=== PATIENT | female | born 1940 | race African-American/Black ===

== ENCOUNTER 2022-08-26 19:22 | Inpatient (IN) | payer MEDICARE, OTHER ==
[2022-08-26] MEDS ORDERED: EPINEPHrine 1 MG/10 ML Abboject SYRINGE ONE (19:25)
[2022-08-26 20:25] LABS: Hemoglobin 12.4 g/dL (12.0-16.0); Mean Corpuscular HGB CONC 31.4 g/dL (32.0-36.0); Mean Corpuscular Hemoglobin 32.5 pg (27.0-31.0); Mean Platelet Volume 9.4 fL (7.4-10.4); Platelet Count 152 thou/uL (130-400); RBC Distribution Width 14.3 % (11.5-14.5); Red Blood Cell (RBC) Count 3.82 mill/uL (4.20-5.40); White Blood Cell (WBC) Count 7.9 thou/uL (4.8-10.8)
[2022-08-26 20:27] LABS: INR-International Normal Ratio 1.3; PTT 38.2 sec (22.9-36.1); Prothrombin Time 16.2 sec (12.0-14.7)
[2022-08-26 20:38] LABS: Digoxin Less than 0.15 ng/mL (0.8-2.0)
[2022-08-26 20:39] LABS: Acetaminophen Less than 10.0 mcg/mL (10.0-30.0); Alcohol Less than 10 mg/dL (Less than 10); CK (CPK) 40 U/L (29-168); Salicylate Less than 8.0 mg/dL (15.0-30.0)
[2022-08-26 20:53] LABS: ALT (SGPT) 10 U/L (8-55); AST (SGOT) 19 U/L (5-34); Albumin 2.1 g/dL (3.4-4.8); Alkaline Phosphatase 47 U/L (40-110); Anion Gap 16 mmol/L (10-20); BUN (Urea Nitrogen) 29 mg/dL (9.8-20.1); Bilirubin, Total 0.7 mg/dL (0.2-1.2); Calc. Creatinine Clearance 0 mL/min (70-130); Calcium 8.2 mg/dL (7.8-10.44); Carbon Dioxide 17 mmol/L (23-31); Chloride 131 mmol/L (98-107); Estimated GFR 61; Globulin 2.7 g/dL (2.4-3.5); Glucose 118 mg/dL (83-110); Potassium 2.3 mmol/L (3.5-5.1); Protein, Total 4.8 g/dL (5.8-8.1); Sodium 162 mmol/L (136-145)
[2022-08-26 21:01] LABS: Band 5 % (5-11); Hypochromia SLIGHT = 6-15 cells (100X) (0-5/hpf); Large Platelets SLIGHT; Lymphocytes 45 % (21-51); MDiff Complete? YES; Macrocytosis MODERATE=16-30 cells (100X) (0-5/hpf); Metamyelocyte 2 % (0-0); Monocytes 6 % (0-10); Neutrophil 39 % (42-75); Ovalocytes SLIGHT = 2-5 cells (100X) (0-1/hpf); Platelet Morphology Comment Appears Adequate; Polychromasia SLIGHT = 2-3 cells (100X) (0-2/hpf); Reactive Lymphocytes 2 % (0-10)
[2022-08-26 21:07] LABS: Amphetamine Not Detected (NotDetected); Bacteria/HPF 4+ HPF (None Seen); Barbiturates Screen Not Detected (NotDetected); Benzodiazepine Screen Not Detected (NotDetected); Bilirubin Negative (Negative); Blood, Urine 2+ (Negative); Clarity Turbid (Clear); Cocaine Metabolite Screen Not Detected (NotDetected); Glucose, Urine (Dipstick) Normal (Negative); Ketone, Urine Negative (Negative); Leukocyte 500 Leu/uL (Negative); Methadone Not Detected (NotDetected); Methamphetamine Not Detected (NotDetected); Nitrite 2+ (Negative); Opiate Screen Not Detected (NotDetected); Oxycodone Screen Not Detected (NotDetected); Phencyclidine (PCP) Not Detected (NotDetected); Protein, Urine (Dipstick) 30 mg/dL (Neg-Trace); Specific Gravity, Urine 1.021 (1.002-1.036); Squamous Epithelial 0-3 HPF (0-3); THC/Cannabinoid Screen Not Detected (NotDetected); Tricyclic Screen Not Detected (NotDetected); WBC/HPF Greater than 50 HPF (0-3); pH, Urine 5.5 (5.0-9.0)
[2022-08-26 21:12] LABS: CKMB 1.6 ng/mL (0-6.6)
[2022-08-26] MEDS ORDERED: EPINEPHrine 4 MG in Dextrose 5% in Water 250 ML IV SCH (21:15)
[2022-08-26] MEDS ORDERED: NOREPINEPHRINE 8 MG/250 ML-D5W 250 ML ONE (22:01)
[2022-08-26 22:25] LABS: SARS-CoV-2 NAA Rapid Test Not Detected (NotDetected)
[2022-08-26] MEDS ORDERED: Enoxaparin Sodium 60 MG/0.6 ML SYRINGE ONE (22:37)
[2022-08-26] MEDS ORDERED: cefTRIAXone\\ROCEPHIN 2 GM VIAL ONE (22:37)
[2022-08-26] MEDS ORDERED: Potassium Chloride 20 MEQ TAB ONE ×2 (22:37→23:03)
[2022-08-26] MEDS ORDERED: Potassium Chloride 20 MEQ/100 ML PREMIX BAG ONE (22:38)
[2022-08-26 22:56] LABS: ALT (SGPT) 11 U/L (8-55); AST (SGOT) 22 U/L (5-34); Albumin 2.4 g/dL (3.4-4.8); Alkaline Phosphatase 53 U/L (40-110); Anion Gap 20 mmol/L (10-20); BUN (Urea Nitrogen) 31 mg/dL (9.8-20.1); Bilirubin, Total 0.9 mg/dL (0.2-1.2); Calc. Creatinine Clearance 0 mL/min (70-130); Calcium 8.8 mg/dL (7.8-10.44); Carbon Dioxide 15 mmol/L (23-31); Estimated GFR 49; Globulin 3.1 g/dL (2.4-3.5); Glucose 190 mg/dL (83-110); Protein, Total 5.5 g/dL (5.8-8.1); Sodium 160 mmol/L (136-145)
[2022-08-26 22:58] LABS: Chloride 128 mmol/L (98-107)
[2022-08-26] MEDS ORDERED: Diltiazem 125 MG/25 ML ONE (23:13)
[2022-08-26] MEDS ORDERED: Acetaminophen 650 MG Suppository PR PRN (23:19)
[2022-08-26] MEDS ORDERED: Ondansetron PF 4 MG/2 ML Vial IVP PRN (23:19)
[2022-08-26] MEDS ORDERED: Ondansetron ODT 4 MG TAB PO PRN (23:19)
[2022-08-26] MEDS ORDERED: Acetaminophen 325 MG TAB PO PRN (23:19)
[2022-08-26 23:27] LABS: Lactic Acid 7.5 mmol/L (0.5-2.2)
[2022-08-26] MEDS ORDERED: Sodium Chloride 0.9% 1,000 ML IV SCH (23:30)
[2022-08-26] MEDS ORDERED: VANCOMYCIN 1.25 GM/250 ML BAG IVPB SCH (23:30)
[2022-08-27 00:34] LABS: Troponin I 0.753 ng/mL (< 0.028)
[2022-08-27 00:57] VITALS: BMI 22.4
[2022-08-27 01:14] LABS: Actual Bicarbonate (HCO3a) 12.6 mEq/L (22-28); Base Excess (BEa) -9.3 mEq/L (-2.0 to +3.0); Calcium, Ionized (arterial) 1.21 mmol/L (1.12-1.30); Carboxyhemoglobin (COHb) 0.3 gm% (0.0-3.0); Hemoglobin (Hb) 14.1 g/dL (12.0-16.0); Potassium - ABG Lab 3.62 mmol/L (3.70-5.30); pH, Arterial 7.42 (7.35-7.45)
[2022-08-27 01:16] LABS: ALV-art Gradient 64.875 mmHg (0-20); CO2 Tension 19.7 mmHg (35.0-45.0); O2 Tension (PaO2), arterial 623.5 mmHg (> 60.0); Puncture Site RRA
[2022-08-27 02:22] LABS: Lactic Acid 6.7 mmol/L (0.5-2.2)
[2022-08-27 02:25] LABS: Anion Gap 18 mmol/L (10-20); BUN (Urea Nitrogen) 31 mg/dL (9.8-20.1); Calc. Creatinine Clearance 38 mL/min (70-130); Calcium 8.5 mg/dL (7.8-10.44); Carbon Dioxide 14 mmol/L (23-31); Estimated GFR 56; Glucose 124 mg/dL (83-110); Potassium 3.3 mmol/L (3.5-5.1); Sodium 158 mmol/L (136-145)
[2022-08-27 02:39] LABS: Chloride 129 mmol/L (98-107)
[2022-08-27 02:59] LABS: Troponin I 0.855 ng/mL (< 0.028)
[2022-08-27] MEDS ORDERED: Meropenem 1 GM in Sodium Chloride 0.9% 100 ML IVPB SCH (03:08)
[2022-08-27] MEDS ORDERED: NOREPINEPHRINE 8 MG/250 ML-D5W 250 ML IVPB SCH (03:15)
[2022-08-27] MEDS ORDERED: Vancomycin 1.5 GRAM/300 ML BAG 1.5 GM in Premix Bag 1 BAG IVPB SCH (03:15)
[2022-08-27 03:48] LABS: Hemoglobin 13.3 g/dL (12.0-16.0); Mean Corpuscular HGB CONC 32.3 g/dL (32.0-36.0); Mean Corpuscular Hemoglobin 32.7 pg (27.0-31.0); Mean Platelet Volume 8.8 fL (7.4-10.4); Platelet Count 177 thou/uL (130-400); RBC Distribution Width 14.4 % (11.5-14.5); Red Blood Cell (RBC) Count 4.07 mill/uL (4.20-5.40); White Blood Cell (WBC) Count 10.9 thou/uL (4.8-10.8)
[2022-08-27 03:49] LABS: #Lymphocytes 1.1 thou/uL (1.20-3.40); #Monocytes 0.4 thou/uL (0.11-0.59); #Neutrophils 9.4 thou/uL (1.40-6.50); %Eosinophils 0.3 % (0.0-10.0); %Lymphocytes 9.7 % (21.0-51.0); %Monocytes 3.9 % (0.0-10.0)
[2022-08-27 04:08] LABS: Magnesium 1.7 mg/dL (1.6-2.6)
[2022-08-27 06:01] LABS: Anion Gap 18 mmol/L (10-20); BUN (Urea Nitrogen) 30 mg/dL (9.8-20.1); Calc. Creatinine Clearance 36 mL/min (70-130); Calcium 8.7 mg/dL (7.8-10.44); Carbon Dioxide 15 mmol/L (23-31); Estimated GFR 53; Glucose 110 mg/dL (83-110); Sodium 158 mmol/L (136-145)
[2022-08-27 06:05] LABS: Chloride 128 mmol/L (98-107)
[2022-08-27 06:39] LABS: Lactic Acid 3.8 mmol/L (0.5-2.2)
[2022-08-27 06:46] LABS: Anion Gap 17 mmol/L (10-20); BUN (Urea Nitrogen) 30 mg/dL (9.8-20.1); Calc. Creatinine Clearance 35 mL/min (70-130); Calcium 8.4 mg/dL (7.8-10.44); Carbon Dioxide 15 mmol/L (23-31); Estimated GFR 51; Glucose 101 mg/dL (83-110); Sodium 158 mmol/L (136-145)
[2022-08-27 06:49] LABS: Chloride 129 mmol/L (98-107)
[2022-08-27] MEDS ORDERED: Magnesium 2 GM/50 ML(in water) 2 GM in Premix Bag 1 BAG IVPB SCH (07:00)
[2022-08-27] MEDS ORDERED: 1/2 NS w/KCL 20 mEq 1,000 ML IV SCH ×3 (07:00→08:15)
[2022-08-27] MEDS ORDERED: Electrolyte Replacement Protocol 1 EACH FS PRN (07:07)
[2022-08-27] MEDS ORDERED: Sodium Chloride 0.9% 1,000 ML IV SCH (07:15)
[2022-08-27 07:20] LABS: Bacteria/HPF 4+ HPF (None Seen); Bilirubin Negative (Negative); Blood, Urine 2+ (Negative); Clarity Turbid (Clear); Glucose, Urine (Dipstick) Normal (Negative); Ketone, Urine Negative (Negative); Leukocyte 500 Leu/uL (Negative); Nitrite 2+ (Negative); Protein, Urine (Dipstick) 30 mg/dL (Neg-Trace); Specific Gravity, Urine 1.021 (1.002-1.036); Squamous Epithelial 0-3 HPF (0-3); Urobilinogen Normal mg/dL (Less than 2); WBC/HPF Greater than 50 HPF (0-3); pH, Urine 5.5 (5.0-9.0)
[2022-08-27 07:21] LABS: Urine Culture Reflex Yes Yes
[2022-08-27] MEDS ORDERED: Potassium Bicarbonate/Cit Ac 20 MEQ TAB PER TUBE SCH (07:30)
[2022-08-27 07:40] LABS: Actual Bicarbonate (HCO3a) 15.5 mEq/L (22-28); Base Excess (BEa) -2.3 mEq/L (-2.0 to +3.0); Calcium, Ionized (arterial) 1.17 mmol/L (1.12-1.30); Carboxyhemoglobin (COHb) 0.3 gm% (0.0-3.0); Hemoglobin (Hb) 12.7 g/dL (12.0-16.0); O2 Tension (PaO2), arterial 225.8 mmHg (> 60.0); Potassium - ABG Lab 2.95 mmol/L (3.70-5.30)
[2022-08-27] MEDS ORDERED: Potassium Chloride 40 MEQ in Premix Bag 1 BAG IVPB SCH (08:00)
[2022-08-27 08:02] LABS: ALV-art Gradient 77.175 mmHg (0-20); CO2 Tension 14.3 mmHg (35.0-45.0); Puncture Site LFA; pH, Arterial 7.65 (7.35-7.45)
[2022-08-27] MEDS: Pantoprazole 40 MG VIAL IVP SCH (09:22)
[2022-08-27] MEDS: Albumin 25% 25 GM/100 ML BOT IVPB SCH ×3 (09:53→20:02)
[2022-08-27] MEDS: Polyethylene Glycol 3350 17 GM Packet PO SCH (09:54)
[2022-08-27] MEDS: Enoxaparin Sodium 40 MG/0.4 ML SYRINGE SC SCH (09:54)
[2022-08-27] MEDS: Senokot S 8.6-50 MG TAB PO SCH ×2 (09:54→20:02)
[2022-08-27 10:07] LABS: Phosphorus Less than 1.0 mg/dL (2.3-4.7)
[2022-08-27] MEDS ORDERED: Potassium Phosphate 30 MMOL in Sodium Chloride 0.9% 250 ML 250 ML IVPB SCH (10:30)
[2022-08-27] MEDS: Meropenem 1 GM in Sodium Chloride 0.9% 100 ML IVPB SCH ×2 (11:12→22:59)
[2022-08-27 12:33] LABS: Lactic Acid 1.9 mmol/L (0.5-2.2)
[2022-08-27 12:36] LABS: Anion Gap 14 mmol/L (10-20); BUN (Urea Nitrogen) 29 mg/dL (9.8-20.1); Calc. Creatinine Clearance 34 mL/min (70-130); Calcium 8.9 mg/dL (7.8-10.44); Carbon Dioxide 18 mmol/L (23-31); Estimated GFR 49; Glucose 94 mg/dL (83-110); Potassium 4.3 mmol/L (3.5-5.1); Sodium 157 mmol/L (136-145)
[2022-08-27 12:45] LABS: Chloride 129 mmol/L (98-107)
[2022-08-27] MEDS: Sodium Chloride 0.45% 1,000 ML IV SCH ×2 (13:54→22:00)
[2022-08-27 17:34] LABS: Anion Gap 14 mmol/L (10-20); BUN (Urea Nitrogen) 28 mg/dL (9.8-20.1); Calc. Creatinine Clearance 35 mL/min (70-130); Calcium 8.7 mg/dL (7.8-10.44); Carbon Dioxide 18 mmol/L (23-31); Chloride 129 mmol/L (98-107); Estimated GFR 51; Glucose 85 mg/dL (83-110); Phosphorus 3.5 mg/dL (2.3-4.7); Potassium 4.3 mmol/L (3.5-5.1); Sodium 157 mmol/L (136-145)
[2022-08-27] MEDS: Bisacodyl 10 MG SUPP PR SCH (20:02)
[2022-08-27] MEDS ORDERED: Fentanyl CADD 100 ML ONE (20:23)
[2022-08-27] MEDS: Fentanyl CADD 100 ML IV SCH (20:26)
[2022-08-27] MEDS ORDERED: Dextrose 10% in Water 250 ML IVPB SCH (23:00)
[2022-08-27] MEDS ORDERED: Dextrose 5% in Water 1,000 ML IV PRN (23:00)
[2022-08-27] MEDS ORDERED: Dextrose 50% Abboject 50 ML SYRINGE SLOW IVP SCH (23:00)
[2022-08-27] MEDS ORDERED: Dextrose 50% Abboject 50 ML SYRINGE IVP PRN (23:00)
[2022-08-27] MEDS: Dextrose 5 %-0.45 % NaCl 1,000 ML IV SCH (23:10)
[2022-08-28] MEDS: Albumin 25% 25 GM/100 ML BOT IVPB SCH ×2 (03:22→09:59)
[2022-08-28 04:07] LABS: #Lymphocytes 1.2 thou/uL (1.20-3.40); #Monocytes 0.4 thou/uL (0.11-0.59); #Neutrophils 6.9 thou/uL (1.40-6.50); %Basophils 0.4 % (0.0-1.0); %Eosinophils 0.3 % (0.0-10.0); %Lymphocytes 14.4 % (21.0-51.0); %Monocytes 4.7 % (0.0-10.0); %Neutrophils 80.2 % (42.0-75.0); Mean Corpuscular HGB CONC 31.5 g/dL (32.0-36.0); Mean Corpuscular Hemoglobin 32.3 pg (27.0-31.0); Mean Platelet Volume 9.1 fL (7.4-10.4); Platelet Count 119 thou/uL (130-400); RBC Distribution Width 14.5 % (11.5-14.5); White Blood Cell (WBC) Count 8.7 thou/uL (4.8-10.8)
[2022-08-28 04:15] LABS: Lactic Acid 1.7 mmol/L (0.5-2.2)
[2022-08-28] MEDS: Vancomycin HCl 750 MG in Sodium Chloride 0.9% 250 ML 250 ML IVPB SCH (04:47)
[2022-08-28 04:52] LABS: ALT (SGPT) 8 U/L (8-55); AST (SGOT) 23 U/L (5-34); Albumin 3.3 g/dL (3.4-4.8); Alkaline Phosphatase 42 U/L (40-110); Anion Gap 14 mmol/L (10-20); BUN (Urea Nitrogen) 24 mg/dL (9.8-20.1); Bilirubin, Total 0.7 mg/dL (0.2-1.2); Calc. Creatinine Clearance 42 mL/min (70-130); Calcium 8.6 mg/dL (7.8-10.44); Carbon Dioxide 19 mmol/L (23-31); Chloride 126 mmol/L (98-107); Estimated GFR 63; Globulin 2.2 g/dL (2.4-3.5); Glucose 89 mg/dL (83-110); Phosphorus 2.2 mg/dL (2.3-4.7); Potassium 3.5 mmol/L (3.5-5.1); Protein, Total 5.5 g/dL (5.8-8.1); Sodium 155 mmol/L (136-145)
[2022-08-28] MEDS ORDERED: Potassium Chloride 20 MEQ TAB PO SCH (05:15)
[2022-08-28] MEDS ORDERED: Potassium Bicarbonate/Cit Ac 20 MEQ TAB PER TUBE SCH (05:30)
[2022-08-28 07:32] LABS: Actual Bicarbonate (HCO3a) 17.6 mEq/L (22-28); Base Excess (BEa) -5.4 mEq/L (-2.0 to +3.0); Calcium, Ionized (arterial) 1.19 mmol/L (1.12-1.30); Carboxyhemoglobin (COHb) 0.3 gm% (0.0-3.0); Hemoglobin (Hb) 10.8 g/dL (12.0-16.0); O2 Tension (PaO2), arterial 129.3 mmHg (> 60.0); Potassium - ABG Lab 4.05 mmol/L (3.70-5.30); pH, Arterial 7.43 (7.35-7.45)
[2022-08-28 07:34] LABS: Puncture Site RRA
[2022-08-28] MEDS: Senokot S 8.6-50 MG TAB PO SCH ×2 (09:54→21:20)
[2022-08-28] MEDS: Enoxaparin Sodium 40 MG/0.4 ML SYRINGE SC SCH (09:54)
[2022-08-28] MEDS: Polyethylene Glycol 3350 17 GM Packet PO SCH (09:54)
[2022-08-28] MEDS: Dextrose 5 %-0.45 % NaCl 1,000 ML IV SCH ×3 (09:54→21:21)
[2022-08-28] MEDS: Pantoprazole 40 MG VIAL IVP SCH (09:54)
[2022-08-28] MEDS: Meropenem 1 GM in Sodium Chloride 0.9% 100 ML IVPB SCH ×2 (11:00→22:16)
[2022-08-28] MEDS: Bisacodyl 10 MG SUPP PR SCH (21:19)
[2022-08-28] MEDS ORDERED: Dextrose 10% in Water 250 ML IVPB SCH (22:15)
[2022-08-29] MEDS: Vancomycin HCl 750 MG in Sodium Chloride 0.9% 250 ML 250 ML IVPB SCH (04:28)
[2022-08-29] MEDS: Dextrose 5 %-0.45 % NaCl 1,000 ML IV SCH (04:28)
[2022-08-29 04:39] LABS: #Monocytes 0.5 thou/uL (0.11-0.59); #Neutrophils 8.4 thou/uL (1.40-6.50); %Basophils 0.1 % (0.0-1.0); %Eosinophils 0.4 % (0.0-10.0); %Lymphocytes 9.8 % (21.0-51.0); %Monocytes 4.6 % (0.0-10.0); %Neutrophils 85.2 % (42.0-75.0); Hemoglobin 10.6 g/dL (12.0-16.0); Mean Corpuscular HGB CONC 31.9 g/dL (32.0-36.0); Mean Corpuscular Hemoglobin 32.7 pg (27.0-31.0); Mean Platelet Volume 9.5 fL (7.4-10.4); Platelet Count 121 thou/uL (130-400); RBC Distribution Width 14.9 % (11.5-14.5); Red Blood Cell (RBC) Count 3.24 mill/uL (4.20-5.40); White Blood Cell (WBC) Count 9.9 thou/uL (4.8-10.8)
[2022-08-29 04:58] LABS: Vancomycin, Trough 15.5 ug/mL
[2022-08-29 05:07] LABS: Anion Gap 11 mmol/L (10-20); BUN (Urea Nitrogen) 16 mg/dL (9.8-20.1); Calc. Creatinine Clearance 46 mL/min (70-130); Calcium 8.5 mg/dL (7.8-10.44); Carbon Dioxide 21 mmol/L (23-31); Chloride 122 mmol/L (98-107); Estimated GFR 81; Glucose 111 mg/dL (83-110); Magnesium 1.7 mg/dL (1.6-2.6); Phosphorus 2.9 mg/dL (2.3-4.7); Potassium 3.6 mmol/L (3.5-5.1); Sodium 150 mmol/L (136-145)
[2022-08-29] MEDS ORDERED: Magnesium 2 GM/50 ML(in water) 2 GM in Premix Bag 1 BAG IVPB SCH (05:30)
[2022-08-29 07:07] LABS: Actual Bicarbonate (HCO3a) 19.3 mEq/L (22-28); Base Excess (BEa) -5.8 mEq/L (-2.0 to +3.0); CO2 Tension 36.5 mmHg (35.0-45.0); Calcium, Ionized (arterial) 1.24 mmol/L (1.12-1.30); Carboxyhemoglobin (COHb) 0.3 gm% (0.0-3.0); Hemoglobin (Hb) 11.4 g/dL (12.0-16.0); O2 Tension (PaO2), arterial 105.6 mmHg (> 60.0); Potassium - ABG Lab 3.54 mmol/L (3.70-5.30); pH, Arterial 7.34 (7.35-7.45)
[2022-08-29 07:08] LABS: ALV-art Gradient 62.675 mmHg (0-20); Puncture Site RRA
[2022-08-29] MEDS ORDERED: Dextrose 5 %-0.45 % NaCl 1,000 ML IV SCH (08:31)
[2022-08-29] MEDS: Enoxaparin Sodium 40 MG/0.4 ML SYRINGE SC SCH (09:18)
[2022-08-29] MEDS: Pantoprazole 40 MG VIAL IVP SCH (09:19)
[2022-08-29] MEDS: Polyethylene Glycol 3350 17 GM Packet PO SCH (09:20)
[2022-08-29] MEDS: Senokot S 8.6-50 MG TAB PO SCH ×2 (09:20→21:42)
[2022-08-29] MEDS: Meropenem 1 GM in Sodium Chloride 0.9% 100 ML IVPB SCH ×2 (11:34→23:23)
[2022-08-29] MEDS ORDERED: Fentanyl CADD 100 ML ONE (13:34)
[2022-08-29] MEDS: Fentanyl CADD 100 ML IV SCH (14:06)
[2022-08-29] MEDS: Dextrose 5% in Water 1,000 ML IV SCH (20:33)
[2022-08-29] MEDS: Bisacodyl 10 MG SUPP PR SCH (21:41)
[2022-08-30 03:42] LABS: #Lymphocytes 1.2 thou/uL (1.20-3.40); #Monocytes 0.3 thou/uL (0.11-0.59); #Neutrophils 5.6 thou/uL (1.40-6.50); %Basophils 0.2 % (0.0-1.0); %Eosinophils 0.6 % (0.0-10.0); %Lymphocytes 16.9 % (21.0-51.0); %Monocytes 3.8 % (0.0-10.0); %Neutrophils 78.5 % (42.0-75.0); Hemoglobin 11.1 g/dL (12.0-16.0); Mean Corpuscular HGB CONC 32.2 g/dL (32.0-36.0); Mean Corpuscular Hemoglobin 33.1 pg (27.0-31.0); Platelet Count 118 thou/uL (130-400); RBC Distribution Width 14.7 % (11.5-14.5); Red Blood Cell (RBC) Count 3.35 mill/uL (4.20-5.40); White Blood Cell (WBC) Count 7.1 thou/uL (4.8-10.8)
[2022-08-30 03:59] LABS: Anion Gap 10 mmol/L (10-20); BUN (Urea Nitrogen) 13 mg/dL (9.8-20.1); Calc. Creatinine Clearance 54 mL/min (70-130); Calcium 8.3 mg/dL (7.8-10.44); Carbon Dioxide 19 mmol/L (23-31); Chloride 118 mmol/L (98-107); Estimated GFR 89; Glucose 89 mg/dL (83-110); Magnesium 2.1 mg/dL (1.6-2.6); Phosphorus 2.4 mg/dL (2.3-4.7); Potassium 3.7 mmol/L (3.5-5.1); Sodium 143 mmol/L (136-145)
[2022-08-30] MEDS: Vancomycin HCl 750 MG in Sodium Chloride 0.9% 250 ML 250 ML IVPB SCH (04:30)
[2022-08-30] MEDS: Dextrose 5% in Water 1,000 ML IV SCH ×2 (05:05→17:43)
[2022-08-30 06:53] LABS: Actual Bicarbonate (HCO3a) 21.4 mEq/L (22-28); Base Excess (BEa) -3.3 mEq/L (-2.0 to +3.0); Calcium, Ionized (arterial) 1.24 mmol/L (1.12-1.30); Carboxyhemoglobin (COHb) 0.3 gm% (0.0-3.0); Hemoglobin (Hb) 11.4 g/dL (12.0-16.0); O2 Tension (PaO2), arterial 137.8 mmHg (> 60.0); Potassium - ABG Lab 3.58 mmol/L (3.70-5.30); Puncture Site RRA; pH, Arterial 7.38 (7.35-7.45)
[2022-08-30] MEDS: Meropenem 1 GM in Sodium Chloride 0.9% 100 ML IVPB SCH ×3 (10:46→23:43)
[2022-08-30] MEDS: Enoxaparin Sodium 40 MG/0.4 ML SYRINGE SC SCH (10:47)
[2022-08-30] MEDS: Polyethylene Glycol 3350 17 GM Packet PO SCH (10:47)
[2022-08-30] MEDS: Metoclopramide HCl 10 MG/2 ML VIAL IVP SCH ×3 (10:47→22:11)
[2022-08-30] MEDS: Senokot S 8.6-50 MG TAB PO SCH ×2 (10:47→22:06)
[2022-08-30] MEDS: Pantoprazole 40 MG VIAL IVP SCH (10:48)
[2022-08-30] MEDS ORDERED: Adenosine 6 MG/2 ML VIAL ONE (15:16)
[2022-08-30] MEDS ORDERED: Adenosine 6 MG/2 ML VIAL IVP SCH (16:00)
[2022-08-30] MEDS: Metoprolol Tartrate 25 MG TAB PO SCH (22:06)
[2022-08-30] MEDS ORDERED: Diltiazem 125 MG in Sodium Chloride 0.9% 100 ML IVPB SCH (23:00)
[2022-08-31] MEDS: Metoclopramide HCl 10 MG/2 ML VIAL IVP SCH ×3 (05:11→13:37)
[2022-08-31] MEDS: Fentanyl CADD 100 ML IV SCH (05:11)
[2022-08-31 05:14] LABS: #Lymphocytes 1.3 thou/uL (1.20-3.40); #Monocytes 0.5 thou/uL (0.11-0.59); #Neutrophils 3.7 thou/uL (1.40-6.50); %Basophils 0.3 % (0.0-1.0); %Eosinophils 0.8 % (0.0-10.0); %Lymphocytes 23.1 % (21.0-51.0); %Monocytes 9.4 % (0.0-10.0); %Neutrophils 66.2 % (42.0-75.0); Hemoglobin 11.7 g/dL (12.0-16.0); Mean Corpuscular Hemoglobin 32.3 pg (27.0-31.0); Mean Platelet Volume 9.3 fL (7.4-10.4); Platelet Count 158 thou/uL (130-400); RBC Distribution Width 14.6 % (11.5-14.5); Red Blood Cell (RBC) Count 3.62 mill/uL (4.20-5.40); White Blood Cell (WBC) Count 5.5 thou/uL (4.8-10.8)
[2022-08-31 05:22] LABS: Anion Gap 7 mmol/L (10-20); BUN (Urea Nitrogen) 14 mg/dL (9.8-20.1); Calc. Creatinine Clearance 52 mL/min (70-130); Calcium 8.7 mg/dL (7.8-10.44); Carbon Dioxide 22 mmol/L (23-31); Chloride 113 mmol/L (98-107); Estimated GFR 88; Glucose 97 mg/dL (83-110); Magnesium 2.1 mg/dL (1.6-2.6); Phosphorus 2.6 mg/dL (2.3-4.7); Potassium 4.1 mmol/L (3.5-5.1); Sodium 138 mmol/L (136-145)
[2022-08-31 07:10] LABS: Actual Bicarbonate (HCO3a) 20.2 mEq/L (22-28); Base Excess (BEa) -3.7 mEq/L (-2.0 to +3.0); Calcium, Ionized (arterial) 1.24 mmol/L (1.12-1.30); Carboxyhemoglobin (COHb) 0.2 gm% (0.0-3.0); Hemoglobin (Hb) 11.9 g/dL (12.0-16.0); Potassium - ABG Lab 3.76 mmol/L (3.70-5.30); pH, Arterial 7.41 (7.35-7.45)
[2022-08-31 07:51] LABS: Puncture Site RRA
[2022-08-31] MEDS: Senokot S 8.6-50 MG TAB PO SCH ×2 (09:22→21:06)
[2022-08-31] MEDS: Enoxaparin Sodium 40 MG/0.4 ML SYRINGE SC SCH (09:22)
[2022-08-31] MEDS: Polyethylene Glycol 3350 17 GM Packet PO SCH (09:22)
[2022-08-31] MEDS: Metoprolol Tartrate 25 MG TAB PO SCH ×2 (09:22→21:06)
[2022-08-31] MEDS: Meropenem 1 GM in Sodium Chloride 0.9% 100 ML IVPB SCH ×3 (09:22→23:35)
[2022-08-31] MEDS: Lansoprazole 3 MG/ML ORAL SUSPENSION PER TUBE SCH (09:26)
[2022-08-31] MEDS: Dextrose 5% in Water 1,000 ML IV SCH ×2 (09:28→23:35)
[2022-09-01] MEDS: Metoclopramide HCl 10 MG/2 ML VIAL IVP SCH ×2 (01:00→12:13)
[2022-09-01 04:25] LABS: #Lymphocytes 0.8 thou/uL (1.20-3.40); #Monocytes 0.4 thou/uL (0.11-0.59); #Neutrophils 2.6 thou/uL (1.40-6.50); %Basophils 0.3 % (0.0-1.0); %Eosinophils 1.2 % (0.0-10.0); %Lymphocytes 19.9 % (21.0-51.0); %Monocytes 10.7 % (0.0-10.0); %Neutrophils 67.9 % (42.0-75.0); Mean Corpuscular HGB CONC 32.6 g/dL (32.0-36.0); Mean Corpuscular Hemoglobin 32.6 pg (27.0-31.0); Mean Corpuscular Volume 99.8 fL (78.0-98.0); Mean Platelet Volume 8.9 fL (7.4-10.4); Platelet Count 164 thou/uL (130-400); RBC Distribution Width 14.4 % (11.5-14.5); Red Blood Cell (RBC) Count 3.38 mill/uL (4.20-5.40); White Blood Cell (WBC) Count 3.9 thou/uL (4.8-10.8)
[2022-09-01 04:48] LABS: Anion Gap 7 mmol/L (10-20); BUN (Urea Nitrogen) 16 mg/dL (9.8-20.1); Calc. Creatinine Clearance 68 mL/min (70-130); Calcium 8.6 mg/dL (7.8-10.44); Carbon Dioxide 23 mmol/L (23-31); Chloride 112 mmol/L (98-107); Estimated GFR 91; Glucose 127 mg/dL (83-110); Potassium 3.7 mmol/L (3.5-5.1); Sodium 138 mmol/L (136-145)
[2022-09-01] MEDS: Meropenem 1 GM in Sodium Chloride 0.9% 100 ML IVPB SCH (08:39)
[2022-09-01] MEDS: Senokot S 8.6-50 MG TAB PO SCH ×2 (08:40→21:07)
[2022-09-01] MEDS: Metoprolol Tartrate 25 MG TAB PO SCH ×2 (08:40→21:06)
[2022-09-01] MEDS: Polyethylene Glycol 3350 17 GM Packet PO SCH (08:40)
[2022-09-01] MEDS: Enoxaparin Sodium 40 MG/0.4 ML SYRINGE SC SCH (08:40)
[2022-09-01] MEDS: Lansoprazole 3 MG/ML ORAL SUSPENSION PER TUBE SCH (08:44)
[2022-09-01] MEDS: cefTRIAXone\\ROCEPHIN 1 GM in Sodium Chloride 0.9% 100 ML IVPB SCH (16:23)
[2022-09-01] MEDS: Dextrose 5% in Water 1,000 ML IV SCH (16:24)
[2022-09-02] MEDS: Metoclopramide HCl 10 MG/2 ML VIAL IVP SCH (01:13)
[2022-09-02 04:40] LABS: #Basophils 0.1 thou/uL (0.0-0.2); #Lymphocytes 1.1 thou/uL (1.20-3.40); #Monocytes 0.7 thou/uL (0.11-0.59); #Neutrophils 3.3 thou/uL (1.40-6.50); %Basophils 1.3 % (0.0-1.0); %Eosinophils 0.7 % (0.0-10.0); %Lymphocytes 21.9 % (21.0-51.0); %Monocytes 13.1 % (0.0-10.0); %Neutrophils 63.1 % (42.0-75.0); Hemoglobin 11.2 g/dL (12.0-16.0); Mean Corpuscular HGB CONC 33.8 g/dL (32.0-36.0); Mean Corpuscular Hemoglobin 33.2 pg (27.0-31.0); Mean Corpuscular Volume 98.3 fL (78.0-98.0); Mean Platelet Volume 8.6 fL (7.4-10.4); Platelet Count 194 thou/uL (130-400); RBC Distribution Width 14.1 % (11.5-14.5); Red Blood Cell (RBC) Count 3.36 mill/uL (4.20-5.40); White Blood Cell (WBC) Count 5.2 thou/uL (4.8-10.8)
[2022-09-02 05:10] LABS: Anion Gap 8 mmol/L (10-20); BUN (Urea Nitrogen) 18 mg/dL (9.8-20.1); Calc. Creatinine Clearance 67 mL/min (70-130); Calcium 8.8 mg/dL (7.8-10.44); Carbon Dioxide 24 mmol/L (23-31); Chloride 109 mmol/L (98-107); Estimated GFR 91; Glucose 105 mg/dL (83-110); Potassium 3.6 mmol/L (3.5-5.1); Sodium 137 mmol/L (136-145)
[2022-09-02] MEDS: Dextrose 5% in Water 1,000 ML IV SCH ×3 (06:03→22:30)
[2022-09-02] MEDS: Polyethylene Glycol 3350 17 GM Packet PO SCH (08:42)
[2022-09-02] MEDS: Metoprolol Tartrate 25 MG TAB PO SCH ×2 (08:42→22:16)
[2022-09-02] MEDS: Lansoprazole 3 MG/ML ORAL SUSPENSION PER TUBE SCH (08:42)
[2022-09-02] MEDS: Enoxaparin Sodium 40 MG/0.4 ML SYRINGE SC SCH (08:42)
[2022-09-02] MEDS: Senokot S 8.6-50 MG TAB PO SCH ×2 (08:43→22:12)
[2022-09-02] MEDS: Metoclopramide 10 MG/10 ML UDCUP PER TUBE SCH ×2 (09:53→22:11)
[2022-09-02] MEDS: cefTRIAXone\\ROCEPHIN 1 GM in Sodium Chloride 0.9% 100 ML IVPB SCH (15:58)
[2022-09-03 04:33] LABS: Anion Gap 9 mmol/L (10-20); BUN (Urea Nitrogen) 20 mg/dL (9.8-20.1); Calc. Creatinine Clearance 58 mL/min (70-130); Calcium 8.7 mg/dL (7.8-10.44); Carbon Dioxide 23 mmol/L (23-31); Chloride 108 mmol/L (98-107); Estimated GFR 92; Glucose 91 mg/dL (83-110); Potassium 3.9 mmol/L (3.5-5.1); Sodium 136 mmol/L (136-145)
[2022-09-03 05:08] LABS: Band 2 % (5-11); Eosinophils 2 % (0-10); Hemoglobin 11.2 g/dL (12.0-16.0); Lymphocytes 26 % (21-51); MDiff Complete? YES; Mean Corpuscular HGB CONC 33.6 g/dL (32.0-36.0); Mean Corpuscular Hemoglobin 33.2 pg (27.0-31.0); Mean Corpuscular Volume 98.6 fL (78.0-98.0); Mean Platelet Volume 8.3 fL (7.4-10.4); Monocytes 13 % (0-10); Myelocyte 1 % (0-0); Neutrophil 56 % (42-75); Platelet Count 216 thou/uL (130-400); RBC Distribution Width 14.1 % (11.5-14.5); Red Blood Cell (RBC) Count 3.38 mill/uL (4.20-5.40); White Blood Cell (WBC) Count 4.7 thou/uL (4.8-10.8)
[2022-09-03] MEDS: Enoxaparin Sodium 40 MG/0.4 ML SYRINGE SC SCH (08:07)
[2022-09-03] MEDS: Metoprolol Tartrate 25 MG TAB PO SCH ×2 (08:08→21:14)
[2022-09-03] MEDS: Lansoprazole 3 MG/ML ORAL SUSPENSION PER TUBE SCH (08:08)
[2022-09-03] MEDS: Polyethylene Glycol 3350 17 GM Packet PO SCH (08:08)
[2022-09-03] MEDS: Metoclopramide 10 MG/10 ML UDCUP PER TUBE SCH ×2 (08:08→20:31)
[2022-09-03] MEDS: Senokot S 8.6-50 MG TAB PO SCH ×2 (08:09→21:15)
[2022-09-03] MEDS: Dextrose 10% in Water 250 ML IVPB PRN (21:09)
[2022-09-03] MEDS: Metoclopramide HCl 10 MG TAB PO SCH (21:14)
[2022-09-03] MEDS ORDERED: Dextrose 5% in Water 1,000 ML IV SCH (22:30)
[2022-09-04] MEDS: Dextrose 5% in Water 1,000 ML IV SCH ×2 (05:19→12:28)
[2022-09-04] MEDS: Dextrose 10% in Water 250 ML IVPB PRN ×3 (05:20→20:56)
[2022-09-04] MEDS: Metoclopramide HCl 10 MG TAB PO SCH ×2 (07:55→21:29)
[2022-09-04] MEDS: Metoprolol Tartrate 25 MG TAB PO SCH ×2 (07:55→19:33)
[2022-09-04] MEDS: Enoxaparin Sodium 40 MG/0.4 ML SYRINGE SC SCH (07:56)
[2022-09-04] MEDS: Polyethylene Glycol 3350 17 GM Packet PO SCH (07:56)
[2022-09-04] MEDS: Senokot S 8.6-50 MG TAB PO SCH ×2 (07:57→19:33)
[2022-09-04 10:38] LABS: Anion Gap 10 mmol/L (10-20); BUN (Urea Nitrogen) 15 mg/dL (9.8-20.1); Calc. Creatinine Clearance 83 mL/min (70-130); Calcium 8.8 mg/dL (7.8-10.44); Carbon Dioxide 21 mmol/L (23-31); Chloride 108 mmol/L (98-107); Estimated GFR 92; Glucose 84 mg/dL (83-110); Potassium 3.8 mmol/L (3.5-5.1); Sodium 135 mmol/L (136-145)
[2022-09-04 10:42] LABS: #Basophils 0.1 thou/uL (0.0-0.2); #Lymphocytes 1.2 thou/uL (1.20-3.40); #Monocytes 0.7 thou/uL (0.11-0.59); #Neutrophils 2.4 thou/uL (1.40-6.50); %Basophils 1.8 % (0.0-1.0); %Eosinophils 1.1 % (0.0-10.0); %Lymphocytes 27.1 % (21.0-51.0); %Monocytes 14.9 % (0.0-10.0); %Neutrophils 55.2 % (42.0-75.0); Hemoglobin 11.3 g/dL (12.0-16.0); Mean Corpuscular HGB CONC 33.9 g/dL (32.0-36.0); Mean Corpuscular Hemoglobin 33.7 pg (27.0-31.0); Mean Corpuscular Volume 99.4 fL (78.0-98.0); Mean Platelet Volume 7.8 fL (7.4-10.4); Platelet Count 240 thou/uL (130-400); RBC Distribution Width 14.1 % (11.5-14.5); Red Blood Cell (RBC) Count 3.37 mill/uL (4.20-5.40); White Blood Cell (WBC) Count 4.4 thou/uL (4.8-10.8)
[2022-09-04] MEDS ORDERED: Dextrose 10% in Water 1,000 ML IV SCH (16:45)
[2022-09-04] MEDS: Dextrose 10% in Water 1,000 ML IV SCH (20:30)
[2022-09-05] MEDS: Dextrose 10% in Water 250 ML IVPB PRN (00:10)
[2022-09-05] MEDS: Metoclopramide HCl 10 MG TAB PO SCH ×2 (08:18→20:53)
[2022-09-05] MEDS: Metoprolol Tartrate 25 MG TAB PO SCH ×2 (08:18→20:53)
[2022-09-05] MEDS: Senokot S 8.6-50 MG TAB PO SCH ×2 (08:19→20:54)
[2022-09-05] MEDS: Enoxaparin Sodium 40 MG/0.4 ML SYRINGE SC SCH (08:19)
[2022-09-05] MEDS: Polyethylene Glycol 3350 17 GM Packet PO SCH (08:19)
[2022-09-05] MEDS: Dextrose 10% in Water 1,000 ML IV SCH (10:45)
[2022-09-05 17:29] LABS: Anion Gap 10 mmol/L (10-20); BUN (Urea Nitrogen) 9 mg/dL (9.8-20.1); Calc. Creatinine Clearance 83 mL/min (70-130); Calcium 8.8 mg/dL (7.8-10.44); Carbon Dioxide 20 mmol/L (23-31); Chloride 108 mmol/L (98-107); Estimated GFR 92; Glucose 106 mg/dL (83-110); Potassium 3.5 mmol/L (3.5-5.1); Sodium 134 mmol/L (136-145)
[2022-09-05 17:37] LABS: Band 3 % (5-11); Eosinophils 4 % (0-10); Lymphocytes 28 % (21-51); MDiff Complete? YES; Mean Corpuscular HGB CONC 33.2 g/dL (32.0-36.0); Mean Corpuscular Hemoglobin 32.6 pg (27.0-31.0); Mean Corpuscular Volume 98.1 fL (78.0-98.0); Mean Platelet Volume 7.4 fL (7.4-10.4); Monocytes 11 % (0-10); Myelocyte 1 % (0-0); Neutrophil 48 % (42-75); Platelet Count 240 thou/uL (130-400); Platelet Morphology Comment Appears Adequate; Polychromasia SLIGHT = 2-3 cells (100X) (0-2/hpf); RBC Distribution Width 13.9 % (11.5-14.5); Reactive Lymphocytes 3 % (0-10); Red Blood Cell (RBC) Count 3.38 mill/uL (4.20-5.40); White Blood Cell (WBC) Count 3.9 thou/uL (4.8-10.8)
[2022-09-05] MEDS ORDERED: Potassium Chloride 20 MEQ TAB PO SCH (20:15)
[2022-09-06] MEDS: Dextrose 10% in Water 1,000 ML IV SCH ×2 (05:01→11:52)
[2022-09-06 05:04] LABS: #Eosinphils 0.1 thou/uL (0.0-0.7); #Lymphocytes 1.3 thou/uL (1.20-3.40); #Monocytes 0.7 thou/uL (0.11-0.59); #Neutrophils 3.6 thou/uL (1.40-6.50); %Basophils 0.3 % (0.0-1.0); %Lymphocytes 22.7 % (21.0-51.0); %Monocytes 11.7 % (0.0-10.0); %Neutrophils 64.3 % (42.0-75.0); Hemoglobin 10.4 g/dL (12.0-16.0); Mean Corpuscular HGB CONC 32.5 g/dL (32.0-36.0); Mean Corpuscular Hemoglobin 32.3 pg (27.0-31.0); Mean Corpuscular Volume 99.5 fL (78.0-98.0); Mean Platelet Volume 7.4 fL (7.4-10.4); Platelet Count 276 thou/uL (130-400); Red Blood Cell (RBC) Count 3.23 mill/uL (4.20-5.40); White Blood Cell (WBC) Count 5.7 thou/uL (4.8-10.8)
[2022-09-06 05:20] LABS: Anion Gap 11 mmol/L (10-20); BUN (Urea Nitrogen) 12 mg/dL (9.8-20.1); Calc. Creatinine Clearance 78 mL/min (70-130); Calcium 8.9 mg/dL (7.8-10.44); Carbon Dioxide 19 mmol/L (23-31); Chloride 108 mmol/L (98-107); Estimated GFR 90; Glucose 108 mg/dL (83-110); Potassium 4.1 mmol/L (3.5-5.1); Sodium 134 mmol/L (136-145)
[2022-09-06] MEDS ORDERED: Dextrose 10% in Water 1,000 ML IV SCH (07:24)
[2022-09-06] MEDS: Metoprolol Tartrate 25 MG TAB PO SCH (09:58)
[2022-09-06] MEDS: Polyethylene Glycol 3350 17 GM Packet PO SCH (09:59)
[2022-09-06] MEDS: Enoxaparin Sodium 40 MG/0.4 ML SYRINGE SC SCH (09:59)
[2022-09-06] MEDS: Senokot S 8.6-50 MG TAB PO SCH ×2 (09:59→21:50)
[2022-09-06] MEDS: Metoclopramide HCl 10 MG TAB PO SCH ×2 (10:02→21:50)
[2022-09-06] MEDS ORDERED: Sodium Chloride 0.9% 250 ML 250 ML IVPB SCH (18:15)
[2022-09-06] MEDS ORDERED: Sodium Chloride 0.9% 250 ML IV SCH (18:30)
[2022-09-07] MEDS: Senokot S 8.6-50 MG TAB PO SCH ×2 (09:19→22:02)
[2022-09-07] MEDS: Dextrose 10% in Water 1,000 ML IV SCH (09:19)
[2022-09-07] MEDS: Enoxaparin Sodium 40 MG/0.4 ML SYRINGE SC SCH (09:19)
[2022-09-07] MEDS: Polyethylene Glycol 3350 17 GM Packet PO SCH (09:20)
[2022-09-07] MEDS: Metoclopramide HCl 10 MG TAB PO SCH ×2 (09:20→22:02)
[2022-09-07 09:35] LABS: Anion Gap 12 mmol/L (10-20); BUN (Urea Nitrogen) 11 mg/dL (9.8-20.1); Calc. Creatinine Clearance 83 mL/min (70-130); Calcium 7.7 mg/dL (7.8-10.44); Carbon Dioxide 19 mmol/L (23-31); Chloride 110 mmol/L (98-107); Estimated GFR 92; Glucose 114 mg/dL (83-110); Potassium 4.9 mmol/L (3.5-5.1); Sodium 136 mmol/L (136-145)
[2022-09-07 15:24] LABS: #Lymphocytes 0.9 thou/uL (1.20-3.40); #Monocytes 0.5 thou/uL (0.11-0.59); %Basophils 0.6 % (0.0-1.0); %Eosinophils 0.7 % (0.0-10.0); %Lymphocytes 16.1 % (21.0-51.0); %Monocytes 8.4 % (0.0-10.0); %Neutrophils 74.2 % (42.0-75.0); Hemoglobin 9.1 g/dL (12.0-16.0); Mean Corpuscular HGB CONC 32.3 g/dL (32.0-36.0); Mean Corpuscular Hemoglobin 32.6 pg (27.0-31.0); Mean Platelet Volume 6.9 fL (7.4-10.4); Platelet Count 259 thou/uL (130-400); RBC Distribution Width 13.7 % (11.5-14.5); White Blood Cell (WBC) Count 5.4 thou/uL (4.8-10.8)
[2022-09-08 05:12] LABS: Anion Gap 11 mmol/L (10-20); BUN (Urea Nitrogen) 10 mg/dL (9.8-20.1); Calc. Creatinine Clearance 80 mL/min (70-130); Calcium 8.6 mg/dL (7.8-10.44); Carbon Dioxide 22 mmol/L (23-31); Chloride 107 mmol/L (98-107); Estimated GFR 91; Glucose 91 mg/dL (83-110); Potassium 4.5 mmol/L (3.5-5.1); Sodium 135 mmol/L (136-145)
[2022-09-08 05:24] LABS: #Eosinphils 0.1 thou/uL (0.0-0.7); #Monocytes 0.5 thou/uL (0.11-0.59); #Neutrophils 3.2 thou/uL (1.40-6.50); %Basophils 0.9 % (0.0-1.0); %Eosinophils 1.5 % (0.0-10.0); %Lymphocytes 20.9 % (21.0-51.0); %Neutrophils 66.7 % (42.0-75.0); Hemoglobin 8.8 g/dL (12.0-16.0); Mean Corpuscular HGB CONC 33.6 g/dL (32.0-36.0); Mean Corpuscular Hemoglobin 34.1 pg (27.0-31.0); Mean Platelet Volume 7.2 fL (7.4-10.4); Platelet Count 242 thou/uL (130-400); RBC Distribution Width 13.8 % (11.5-14.5); Red Blood Cell (RBC) Count 2.57 mill/uL (4.20-5.40); White Blood Cell (WBC) Count 4.9 thou/uL (4.8-10.8)
[2022-09-08] MEDS ORDERED: cefTRIAXone\\ROCEPHIN 1 GM VIAL ONE (10:06)
[2022-09-08] MEDS ORDERED: Ketamine 50 MG/ML (10ML VIAL) ONE (10:06)
[2022-09-08] MEDS ORDERED: Sodium Chloride 0.9% 100 ML ONE (10:06)
[2022-09-08] MEDS ORDERED: PROPOFOL 200 MG/20 ML VIAL ONE (10:17)
[2022-09-08] MEDS: Polyethylene Glycol 3350 17 GM Packet PO SCH (12:33)
[2022-09-08] MEDS: Metoclopramide HCl 10 MG TAB PO SCH ×2 (12:33→20:55)
[2022-09-08] MEDS: Senokot S 8.6-50 MG TAB PO SCH ×2 (12:33→20:54)
[2022-09-08] MEDS: Dextrose 10% in Water 1,000 ML IV SCH (13:12)
[2022-09-09 05:01] LABS: ALT (SGPT) 10 U/L (8-55); AST (SGOT) 28 U/L (5-34); Albumin 2.1 g/dL (3.4-4.8); Alkaline Phosphatase 109 U/L (40-110); Anion Gap 12 mmol/L (10-20); BUN (Urea Nitrogen) 8 mg/dL (9.8-20.1); Bilirubin, Total 0.3 mg/dL (0.2-1.2); Calc. Creatinine Clearance 84 mL/min (70-130); Calcium 8.4 mg/dL (7.8-10.44); Carbon Dioxide 22 mmol/L (23-31); Chloride 107 mmol/L (98-107); Estimated GFR 92; Globulin 2.9 g/dL (2.4-3.5); Glucose 102 mg/dL (83-110); Magnesium 1.7 mg/dL (1.6-2.6); Potassium 4.5 mmol/L (3.5-5.1); Sodium 136 mmol/L (136-145)
[2022-09-09 07:12] LABS: #Eosinphils 0.1 thou/uL (0.0-0.7); #Monocytes 0.5 thou/uL (0.11-0.59); #Neutrophils 2.9 thou/uL (1.40-6.50); %Basophils 0.3 % (0.0-1.0); %Eosinophils 2.3 % (0.0-10.0); %Lymphocytes 21.6 % (21.0-51.0); %Monocytes 10.3 % (0.0-10.0); %Neutrophils 65.6 % (42.0-75.0); Hemoglobin 9.2 g/dL (12.0-16.0); Mean Corpuscular HGB CONC 32.3 g/dL (32.0-36.0); Mean Corpuscular Hemoglobin 32.4 pg (27.0-31.0); Mean Platelet Volume 6.8 fL (7.4-10.4); Platelet Count 249 thou/uL (130-400); RBC Distribution Width 13.6 % (11.5-14.5); Red Blood Cell (RBC) Count 2.84 mill/uL (4.20-5.40); White Blood Cell (WBC) Count 4.4 thou/uL (4.8-10.8)
[2022-09-09 07:49] LABS: Phosphorus 3.2 mg/dL (2.3-4.7)
[2022-09-09] MEDS ORDERED: Magnesium 2 GM/50 ML(in water) 2 GM in Premix Bag 1 BAG IVPB SCH (08:00)
[2022-09-09] MEDS: Polyethylene Glycol 3350 17 GM Packet PO SCH (09:38)
[2022-09-09] MEDS: Senokot S 8.6-50 MG TAB PO SCH ×2 (09:38→22:40)
[2022-09-09] MEDS: Enoxaparin Sodium 40 MG/0.4 ML SYRINGE SC SCH (09:39)
[2022-09-09] MEDS: Dextrose 10% in Water 1,000 ML IV SCH (09:40)
[2022-09-09] MEDS: Metoclopramide HCl 10 MG TAB PO SCH ×2 (09:46→22:40)
[2022-09-10 05:06] LABS: #Eosinphils 0.1 thou/uL (0.0-0.7); #Lymphocytes 1.1 thou/uL (1.20-3.40); #Monocytes 0.4 thou/uL (0.11-0.59); #Neutrophils 2.9 thou/uL (1.40-6.50); %Basophils 0.2 % (0.0-1.0); %Eosinophils 2.6 % (0.0-10.0); %Monocytes 9.6 % (0.0-10.0); %Neutrophils 63.5 % (42.0-75.0); Hemoglobin 9.2 g/dL (12.0-16.0); Mean Corpuscular HGB CONC 32.9 g/dL (32.0-36.0); Mean Corpuscular Hemoglobin 33.1 pg (27.0-31.0); Mean Platelet Volume 7.1 fL (7.4-10.4); Platelet Count 256 thou/uL (130-400); RBC Distribution Width 13.6 % (11.5-14.5); Red Blood Cell (RBC) Count 2.78 mill/uL (4.20-5.40); White Blood Cell (WBC) Count 4.5 thou/uL (4.8-10.8)
[2022-09-10 05:11] LABS: ALT (SGPT) 10 U/L (8-55); AST (SGOT) 26 U/L (5-34); Albumin 2.2 g/dL (3.4-4.8); Alkaline Phosphatase 122 U/L (40-110); Anion Gap 11 mmol/L (10-20); BUN (Urea Nitrogen) 10 mg/dL (9.8-20.1); Bilirubin, Total 0.3 mg/dL (0.2-1.2); Calc. Creatinine Clearance 77 mL/min (70-130); Calcium 8.9 mg/dL (7.8-10.44); Carbon Dioxide 25 mmol/L (23-31); Chloride 106 mmol/L (98-107); Estimated GFR 90; Globulin 3.4 g/dL (2.4-3.5); Glucose 114 mg/dL (83-110); Magnesium 1.8 mg/dL (1.6-2.6); Phosphorus 3.2 mg/dL (2.3-4.7); Potassium 4.5 mmol/L (3.5-5.1); Protein, Total 5.6 g/dL (5.8-8.1); Sodium 137 mmol/L (136-145)
[2022-09-10] MEDS ORDERED: Magnesium 2 GM/50 ML(in water) 2 GM in Premix Bag 1 BAG IVPB SCH (08:00)
[2022-09-10] MEDS: Dextrose 10% in Water 1,000 ML IV SCH (10:39)
[2022-09-10] MEDS: Enoxaparin Sodium 40 MG/0.4 ML SYRINGE SC SCH (10:45)
[2022-09-10] MEDS: Metoclopramide HCl 10 MG TAB PO SCH ×2 (10:46→21:59)
[2022-09-10] MEDS: Polyethylene Glycol 3350 17 GM Packet PO SCH (10:46)
[2022-09-10] MEDS: Senokot S 8.6-50 MG TAB PO SCH ×2 (10:47→21:59)
[2022-09-11 04:29] LABS: #Eosinphils 0.1 thou/uL (0.0-0.7); #Lymphocytes 1.5 thou/uL (1.20-3.40); #Monocytes 0.7 thou/uL (0.11-0.59); #Neutrophils 3.5 thou/uL (1.40-6.50); %Basophils 0.2 % (0.0-1.0); %Eosinophils 1.7 % (0.0-10.0); %Lymphocytes 26.2 % (21.0-51.0); %Monocytes 11.7 % (0.0-10.0); %Neutrophils 60.2 % (42.0-75.0); Hemoglobin 8.5 g/dL (12.0-16.0); Mean Corpuscular HGB CONC 31.8 g/dL (32.0-36.0); Mean Corpuscular Hemoglobin 32.6 pg (27.0-31.0); Mean Platelet Volume 6.6 fL (7.4-10.4); Platelet Count 217 thou/uL (130-400); Red Blood Cell (RBC) Count 2.61 mill/uL (4.20-5.40); White Blood Cell (WBC) Count 5.7 thou/uL (4.8-10.8)
[2022-09-11 04:44] LABS: Anion Gap 8 mmol/L (10-20); BUN (Urea Nitrogen) 12 mg/dL (9.8-20.1); Bilirubin, Total 0.3 mg/dL (0.2-1.2); Calc. Creatinine Clearance 75 mL/min (70-130); Calcium 8.8 mg/dL (7.8-10.44); Carbon Dioxide 27 mmol/L (23-31); Chloride 105 mmol/L (98-107); Estimated GFR 90; Glucose 109 mg/dL (83-110); Potassium 4.4 mmol/L (3.5-5.1); Protein, Total 5.2 g/dL (5.8-8.1); Sodium 136 mmol/L (136-145)
[2022-09-11 04:45] LABS: ALT (SGPT) 7 U/L (8-55); AST (SGOT) 24 U/L (5-34); Albumin 2.1 g/dL (3.4-4.8); Alkaline Phosphatase 105 U/L (40-110); Globulin 3.1 g/dL (2.4-3.5)
[2022-09-11] MEDS: Polyethylene Glycol 3350 17 GM Packet PO SCH (09:26)
[2022-09-11] MEDS: Enoxaparin Sodium 40 MG/0.4 ML SYRINGE SC SCH (09:26)
[2022-09-11] MEDS: Metoclopramide HCl 10 MG TAB PO SCH ×2 (09:26→21:03)
[2022-09-11] MEDS: Senokot S 8.6-50 MG TAB PO SCH ×2 (09:26→21:03)
[2022-09-11] MEDS: Dextrose 10% in Water 1,000 ML IV SCH (21:02)
[2022-09-12] MEDS: Metoclopramide HCl 10 MG TAB PO SCH ×2 (09:26→21:25)
[2022-09-12] MEDS: Enoxaparin Sodium 40 MG/0.4 ML SYRINGE SC SCH (09:26)
[2022-09-12] MEDS: Senokot S 8.6-50 MG TAB PO SCH ×2 (09:26→21:24)
[2022-09-12] MEDS: Polyethylene Glycol 3350 17 GM Packet PO SCH (09:26)
[2022-09-12] MEDS: Dextrose 10% in Water 1,000 ML IV SCH (19:53)
[2022-09-13] MEDS: Senokot S 8.6-50 MG TAB PO SCH (09:27)
[2022-09-13] MEDS: Metoclopramide HCl 10 MG TAB PO SCH (09:27)
[2022-09-13] MEDS: Polyethylene Glycol 3350 17 GM Packet PO SCH (09:27)
[2022-09-13] MEDS: Enoxaparin Sodium 40 MG/0.4 ML SYRINGE SC SCH (09:27)
[2022-09-13 13:03] VITALS: BP 163/104; TEMP 97.4
== END 2022-09-13 15:15 | disposition hospice, home (50) | DRG 870 ==
LOC: ERS 19:22 → EDBD 19:22 → CCU 23:01 → 2NO 09-03 18:23
PROVIDERS: ADMIT Student in an Organized Health Care Education/Training Program; ATTEND Internal Medicine
PROC: 5A1955Z Respiratory Ventilation, Greater than 96 Consecutive Hours (ICD-10-PCS; principal; 2022-08-26)
PROC: 3E043XZ Introduction of Vasopressor into Central Vein, Percutaneous Approach (ICD-10-PCS; 2022-08-26)
PROC: 3E04329 Introduction of Other Anti-infective into Central Vein, Percutaneous Approach (ICD-10-PCS; 2022-08-26)
PROC: 0DH67UZ Insertion of Feeding Device into Stomach, Via Natural or Artificial Opening (ICD-10-PCS; 2022-08-26)
PROC: 3E0G76Z Introduction of Nutritional Substance into Upper GI, Via Natural or Artificial Opening (ICD-10-PCS; 2022-08-26)
PROC: 02HV33Z Insertion of Infusion Device into Superior Vena Cava, Percutaneous Approach (ICD-10-PCS; 2022-08-26)
PROC: 02HV33Z Insertion of Infusion Device into Superior Vena Cava, Percutaneous Approach (ICD-10-PCS; 2022-09-07)
PROC: B5181ZA Fluoroscopy of Superior Vena Cava using Low Osmolar Contrast, Guidance (ICD-10-PCS; 2022-09-07)
PROC: B548ZZA Ultrasonography of Superior Vena Cava, Guidance (ICD-10-PCS; 2022-09-07)
PROC: 0DH63UZ Insertion of Feeding Device into Stomach, Percutaneous Approach (ICD-10-PCS; 2022-09-08)
PROC: 3E0G76Z Introduction of Nutritional Substance into Upper GI, Via Natural or Artificial Opening (ICD-10-PCS; 2022-09-08)
DX: A41.9 Sepsis, unspecified organism (principal); I21.A1 Myocardial infarction type 2; I46.2 Cardiac arrest due to underlying cardiac condition; R65.21 Severe sepsis with septic shock; R57.1 Hypovolemic shock; G92.8 Other toxic encephalopathy; J96.01 Acute respiratory failure with hypoxia; J69.0 Pneumonitis due to inhalation of food and vomit; N39.0 Urinary tract infection, site not specified; E87.0 Hyperosmolality and hypernatremia; I47.1 Supraventricular tachycardia; R64 Cachexia; G93.1 Anoxic brain damage, not elsewhere classified; Z20.822 Contact with and (suspected) exposure to COVID-19; G30.9 Alzheimer's disease, unspecified; F02.80 Dementia in other diseases classified elsewhere, unspecified severity, without behavioral disturbance, psychotic disturbance, mood disturbance, and anxiety; E86.0 Dehydration; Z51.5 Encounter for palliative care; E83.42 Hypomagnesemia; K59.00 Constipation, unspecified; I49.5 Sick sinus syndrome; E87.70 Fluid overload, unspecified; N18.2 Chronic kidney disease, stage 2 (mild); E16.2 Hypoglycemia, unspecified; D63.1 Anemia in chronic kidney disease; R13.10 Dysphagia, unspecified; E83.39 Other disorders of phosphorus metabolism; E87.6 Hypokalemia; D75.89 Other specified diseases of blood and blood-forming organs; Z88.6 Allergy status to analgesic agent; Z95.0 Presence of cardiac pacemaker; Z88.8 Allergy status to other drugs, medicaments and biological substances; Z88.0 Allergy status to penicillin; Z79.82 Long term (current) use of aspirin; Z79.899 Other long term (current) drug therapy; Z78.1 Physical restraint status; Z90.710 Acquired absence of both cervix and uterus; Z98.49 Cataract extraction status, unspecified eye; Z68.26 Body mass index [BMI] 26.0-26.9, adult
CPT/HCPCS: 36415; 36416; 36569; 36600; 70450; 71045; 74018; 74176; 80048; 80053; 80162; 80202; 80306; 80307; 81001; 81003; 81015; 82533; 82550; 82553; 82607; 82805; 83605; 83735; 83880; 84100; 84145; 84443; 84484; 85025; 85610; 85730; 86850; 86900; 86901; 87040; 87077; 87086; 87149; 87186; 87811; 92950; 93005; 93010; 93306; 94002; 94003; 94760; 96365; 96366; 96368; 96372; C1751; C9113; J0153; J0171; J0696; J1610; J1650; J2185; J2704; J2765; J3010; J3370; J3475; J3480; J3490; J7030; J7042; J7050; J7070; P9047

== ENCOUNTER 2022-09-13 22:44 | Inpatient (IN) | payer OTHER ==
[2022-09-14] MEDS ORDERED: Sodium Chloride 0.9% 1,000 ML IV SCH (00:15)
[2022-09-14] MEDS ORDERED: Dextrose 5% in Water 1,000 ML IV PRN (00:55)
[2022-09-14] MEDS ORDERED: Insulin Regular 300 UNITS/3 ML VIAL SC PRN (00:55)
[2022-09-14] MEDS ORDERED: Dextrose 50% Abboject 50 ML SYRINGE SLOW IVP PRN (00:55)
[2022-09-14] MEDS ORDERED: Acetaminophen 650 MG Suppository PR PRN (01:47)
[2022-09-14 02:26] LABS: Anion Gap 14 mmol/L (10-20); BUN (Urea Nitrogen) 11 mg/dL (9.8-20.1); Calc. Creatinine Clearance 0 mL/min (70-130); Calcium 8.9 mg/dL (7.8-10.44); Carbon Dioxide 19 mmol/L (23-31); Chloride 106 mmol/L (98-107); Estimated GFR 89; Glucose 109 mg/dL (83-110); Potassium 3.7 mmol/L (3.5-5.1); Sodium 135 mmol/L (136-145)
[2022-09-14] MEDS ORDERED: Dextrose 10% in Water 1,000 ML IV SCH (03:00)
[2022-09-14] MEDS ORDERED: Dextrose 5% in Water 1,000 ML IV SCH (04:15)
[2022-09-14 04:29] LABS: #Basophils 0.1 thou/uL (0.0-0.2); #Eosinphils 0.3 thou/uL (0.0-0.7); #Lymphocytes 1.7 thou/uL (1.20-3.40); #Monocytes 1.1 thou/uL (0.11-0.59); #Neutrophils 4.5 thou/uL (1.40-6.50); %Basophils 0.8 % (0.0-1.0); %Eosinophils 3.4 % (0.0-10.0); %Lymphocytes 21.8 % (21.0-51.0); %Monocytes 14.1 % (0.0-10.0); %Neutrophils 59.9 % (42.0-75.0); Hemoglobin 9.5 g/dL (12.0-16.0); Mean Corpuscular HGB CONC 32.4 g/dL (32.0-36.0); Mean Corpuscular Hemoglobin 33.7 pg (27.0-31.0); Mean Platelet Volume 7.2 fL (7.4-10.4); Platelet Count 241 thou/uL (130-400); RBC Distribution Width 14.1 % (11.5-14.5); Red Blood Cell (RBC) Count 2.81 mill/uL (4.20-5.40); White Blood Cell (WBC) Count 7.6 thou/uL (4.8-10.8)
[2022-09-14 04:54] LABS: Anion Gap 11 mmol/L (10-20); BUN (Urea Nitrogen) 13 mg/dL (9.8-20.1); Calc. Creatinine Clearance 0 mL/min (70-130); Calcium 8.7 mg/dL (7.8-10.44); Carbon Dioxide 19 mmol/L (23-31); Chloride 106 mmol/L (98-107); Estimated GFR 91; Magnesium 1.7 mg/dL (1.6-2.6); Sodium 132 mmol/L (136-145)
[2022-09-14 05:11] LABS: Glucose 52 mg/dL (83-110)
[2022-09-14] MEDS: Dextrose 10% in Water 1,000 ML IV SCH ×3 (05:18→14:53)
[2022-09-14 06:46] LABS: Glucose 135 mg/dL (83-110)
[2022-09-14 08:31] LABS: Glucose 87 mg/dL (83-110)
[2022-09-14] MEDS ORDERED: Enoxaparin Sodium 40 MG/0.4 ML SYRINGE SC SCH (09:00)
[2022-09-14 10:30] LABS: Glucose 86 mg/dL (83-110)
[2022-09-14 10:34] VITALS: BMI 23.2
[2022-09-14] MEDS: Floranex 1 GM Packet PO SCH (10:41)
[2022-09-14] MEDS: Enoxaparin Sodium 40 MG/0.4 ML SYRINGE SC SCH (10:41)
[2022-09-14] MEDS: Senokot S 8.6-50 MG TAB PO SCH ×2 (10:41→22:38)
[2022-09-14] MEDS: Folic Acid 1 MG TAB PO SCH (10:41)
[2022-09-14] MEDS: Atorvastatin Calcium 40 MG TAB PO SCH (10:41)
[2022-09-14] MEDS: Aspirin 325 MG TAB PO SCH (10:41)
[2022-09-14] MEDS: Cyanocobalamin (Vitamin B-12) 1,000 MCG TAB PO SCH (10:41)
[2022-09-14 12:44] LABS: Glucose 78 mg/dL (83-110)
[2022-09-14 14:25] LABS: Glucose 71 mg/dL (83-110)
[2022-09-14] MEDS: DEXTROSE IV SCH ×2 (14:30→22:38)
[2022-09-14] MEDS: WATER IV SCH ×2 (14:30→22:38)
[2022-09-14 18:04] LABS: Glucose 89 mg/dL (83-110)
[2022-09-14 19:03] LABS: Glucose 118 mg/dL (83-110)
[2022-09-14] MEDS ORDERED: Melatonin 3 MG TAB PO SCH (21:00)
[2022-09-14 21:10] LABS: Glucose 121 mg/dL (83-110)
[2022-09-14] MEDS ORDERED: Morphine 2 MG/ML VIAL SLOW IVP PRN (22:10)
[2022-09-14] MEDS: Morphine 4 MG/ML VIAL SLOW IVP PRN (22:24)
[2022-09-14 22:53] LABS: Glucose 156 mg/dL (83-110)
[2022-09-15 00:40] LABS: Glucose 169 mg/dL (83-110)
[2022-09-15] MEDS: Morphine 4 MG/ML VIAL SLOW IVP PRN ×2 (02:34→06:19)
[2022-09-15] MEDS: WATER IV SCH ×2 (02:36→06:20)
[2022-09-15] MEDS: DEXTROSE IV SCH ×2 (02:36→06:20)
[2022-09-15 04:53] LABS: #Eosinphils 0.1 thou/uL (0.0-0.7); #Lymphocytes 1.4 thou/uL (1.20-3.40); #Monocytes 1.3 thou/uL (0.11-0.59); #Neutrophils 7.1 thou/uL (1.40-6.50); %Basophils 0.3 % (0.0-1.0); %Eosinophils 1.1 % (0.0-10.0); %Lymphocytes 14.1 % (21.0-51.0); %Monocytes 12.9 % (0.0-10.0); %Neutrophils 71.7 % (42.0-75.0); Mean Corpuscular HGB CONC 32.8 g/dL (32.0-36.0); Mean Corpuscular Hemoglobin 33.4 pg (27.0-31.0); Mean Platelet Volume 6.6 fL (7.4-10.4); Platelet Count 241 thou/uL (130-400); RBC Distribution Width 13.4 % (11.5-14.5); Red Blood Cell (RBC) Count 2.39 mill/uL (4.20-5.40); White Blood Cell (WBC) Count 9.8 thou/uL (4.8-10.8)
[2022-09-15 06:10] LABS: ALT (SGPT) 10 U/L (8-55); AST (SGOT) 30 U/L (5-34); Albumin 2.2 g/dL (3.4-4.8); Alkaline Phosphatase 91 U/L (40-110); Anion Gap 10 mmol/L (10-20); BUN (Urea Nitrogen) 14 mg/dL (9.8-20.1); Bilirubin, Total 0.3 mg/dL (0.2-1.2); Calc. Creatinine Clearance 68 mL/min (70-130); Calcium 8.5 mg/dL (7.8-10.44); Carbon Dioxide 22 mmol/L (23-31); Chloride 97 mmol/L (98-107); Estimated GFR 85; Globulin 3.3 g/dL (2.4-3.5); Glucose 202 mg/dL (83-110); Potassium 3.6 mmol/L (3.5-5.1); Protein, Total 5.5 g/dL (5.8-8.1); Sodium 125 mmol/L (136-145)
[2022-09-15] MEDS: Enoxaparin Sodium 40 MG/0.4 ML SYRINGE SC SCH (10:55)
[2022-09-15] MEDS: Floranex 1 GM Packet PO SCH ×2 (10:55→17:44)
[2022-09-15] MEDS: Atorvastatin Calcium 40 MG TAB PO SCH ×2 (10:55→17:44)
[2022-09-15] MEDS: Senokot S 8.6-50 MG TAB PO SCH (10:55)
[2022-09-15] MEDS: Folic Acid 1 MG TAB PO SCH ×2 (10:55→17:44)
[2022-09-15] MEDS: Cyanocobalamin (Vitamin B-12) 1,000 MCG TAB PO SCH ×2 (10:55→17:44)
[2022-09-15] MEDS: Aspirin 325 MG TAB PO SCH ×2 (10:55→17:44)
[2022-09-15 15:37] VITALS: BP 125/58; TEMP 98.5
[2022-09-17] MEDS ORDERED: FLU VACC QS2022-23(65YR UP)/PF 240 MCG/0.7 ML SYRINGE IM ONE (09:00)
== END 2022-09-15 18:26 | disposition hospice, inpatient (51) | DRG 640 ==
LOC: ERS 22:44 → 2NO 09-14 00:07 → OBSVTOIN 09-15 10:04
PROVIDERS: ADMIT Internal Medicine; ATTEND Internal Medicine
DX: E16.2 Hypoglycemia, unspecified (principal); Z66 Do not resuscitate; Z51.5 Encounter for palliative care; Z20.822 Contact with and (suspected) exposure to COVID-19; G93.41 Metabolic encephalopathy; G93.1 Anoxic brain damage, not elsewhere classified; G30.9 Alzheimer's disease, unspecified; F02.80 Dementia in other diseases classified elsewhere, unspecified severity, without behavioral disturbance, psychotic disturbance, mood disturbance, and anxiety; Z88.6 Allergy status to analgesic agent; Z88.0 Allergy status to penicillin; Z93.1 Gastrostomy status; Z86.74 Personal history of sudden cardiac arrest; Z87.440 Personal history of urinary (tract) infections; Z95.0 Presence of cardiac pacemaker
CPT/HCPCS: 36415; 36416; 71045; 74018; 80048; 82947; 83525; 83735; 85025; 96372; 96374; 96376; 99285; G0378; J1650; J2270; U0003; U0005